=== PATIENT | female | born 2000 | race Two or more races ===

== ENCOUNTER 2020-07-26 16:37 | Outpatient (REF) | payer BC, MEDICAID, SELFPAY | END 2020-07-26 16:38 | disposition home or self-care (01) | LOC: HO.LAB 16:37 | PROVIDERS: PCP Internal Medicine; Visit Provider Internal Medicine | DX: Z20.828 Contact with and (suspected) exposure to other viral communicable diseases (principal) | CPT/HCPCS: C9803; U0003 ==